=== PATIENT | female | born 1995 | race Caucasian/White ===

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

== ENCOUNTER → 2017-11-19 | Outpatient (CLI) | payer OTHER ==
--- NOTE | 2017-11-22 09:35 | MRI ---
Study: MRI of the Right Shoulder. Indication: RIGHT SHOULDER PAIN Technique: Multiplanar, multi sequence MRI of the right shoulder was obtained without intravenous contrast. Comparison: None. Findings: AC joint normal. Type I acromion. Trace subacromial/subdeltoid bursal fluid. Subtle supraspinatus and infraspinatus tendinosis without tear. Subscapularis and teres minor tendons intact. Rotator cuff musculature normal without atrophy, fatty infiltration, or intramuscular edema. Long head biceps tendon intact. Subtle free edge truncation superior labrum and posterior labrum with suspected undersurface tearing. No acute fracture or advanced glenohumeral joint osteoarthritis. Tiny joint effusion. No acute fracture. Impression: Supraspinatus and infraspinatus tendinosis. Free edge truncation superior labrum and posterior labrum with suspected undersurface tearing. MRI arthrography could better evaluate as clinically indicated. Tiny glenohumeral joint effusion. Electronically signed by: Abhilash Santos MD 11/22/2017 9:34 AM CDT
== END ==
LOC: MRI 12:56
PROVIDERS: ATTEND Family Medicine
DX: M25.511 Pain in right shoulder (principal); S49.91XA Unspecified injury of right shoulder and upper arm, initial encounter